=== PATIENT | female | born 1990 | race Caucasian/White ===

== ENCOUNTER 2017-03-29 22:14 | Emergency (ER) | payer OTHER ==
[~2017-03-29] VITALS: Ht 157.5 cm; Wt 117.9 kg
--- NOTE | 2017-03-29 22:35 | NUR ---
pt a/o x 4, breathing unlabored, c/o of headache x 1 days, bilateral temporal pain non-radiating 02/23. states "I didnt take any medication today, just wanted to come in and be seen." no visual disturbances,
[2017-03-29] MEDS ORDERED: KETOROLAC TROMETHAMINE INJ 60 MG/2 ML VIAL IM ONE ×2 (22:38→23:00)
[2017-03-29] MEDS ORDERED: ONDANSETRON 4 MG TAB.RAPDIS ONE (22:38)
[2017-03-29] MEDS ORDERED: ONDANSETRON 4 MG TAB.RAPDIS SL ONE (23:00)
[2017-03-29 23:09] VITALS: BP 132/66
== END 2017-03-29 23:11 | disposition home or self-care (01) ==
LOC: ER 22:18
DX: O26.899 Other specified pregnancy related conditions, unspecified trimester (principal); R51 Headache; Z3A.00 Weeks of gestation of pregnancy not specified
CPT/HCPCS: 84703; 96372; 99283; A4606; J1885; Q0162; Z7610

== ENCOUNTER 2017-05-24 17:27 | Emergency (ER) | payer OTHER ==
[~2017-05-24] VITALS: Ht 162.6 cm; Wt 112.0 kg
[2017-05-24 18:12] VITALS: BP 108/71
--- NOTE | 2017-05-24 18:12 | NUR ---
PT AMBULATORY TO ER BED 17. C/O BLURING OF VISION, DIZZINESS AND NAUSEA AND VOMITING FOR COUPLE OF DAYS. PT IS 3 MONTHS . GOWNED AND PLACED ON MONITOR. NAD NOTED. AWAITING MD ARVIZU.
--- NOTE | 2017-05-24 18:24 | NUR ---
SHANELLE ROD AT BEDSIDE FOR EVAL.
[2017-05-24] MEDS ORDERED: IV NS 0.9% 1,000 ML BAG IV ONE (18:30)
[2017-05-24] MEDS ORDERED: METOCLOPRAMIDE HCL 10 MG/2 ML VIAL IV ONE (18:30)
--- NOTE | 2017-05-24 18:30 | NUR ---
IV LINE STARTED BLOOD DRAWN AND SENT TO LAB.
[2017-05-24] MEDS ORDERED: METOCLOPRAMIDE HCL 10 MG/2 ML VIAL ONE (18:34)
[2017-05-24 18:35] LABS: BASOPHILS # (AUTO) 0.3 /CMM (0.0-0.2); BASOPHILS % (AUTO) 2.5 % (0.0-2.0); EOSINOPHILS # (AUTO) 0.1 /CMM (0.0-0.7); EOSINOPHILS % (AUTO) 0.5 % (0.0-6.0); HEMATOCRIT 39 % (33-45); HEMOGLOBIN 13.3 g/dL (11.5-14.8); LYMPHOCYTES # (AUTO) 2.2 /CMM (0.8-4.8); LYMPHOCYTES % (AUTO) 21.3 % (20.0-44.0); MEAN CORPUSCULAR HEMOGLOBIN 29 PG (26.0-33.0); MEAN CORPUSCULAR HGB CONC 34 g/dl (31.0-36.0); MEAN CORPUSCULAR VOLUME 87 fL (82-100); MONOCYTES # (AUTO) 0.4 /CMM (0.1-1.30); MONOCYTES % (AUTO) 4.1 % (2.0-12.0); NEUTROPHILS # (AUTO) 7.4 /CMM (1.8-8.9); NEUTROPHILS % (AUTO) 71.6 % (43.0-81.0); PLATELET COUNT (AUTO) 130 /CMM (150-450); RDW COEFFICIENT OF VARIATION 11.7 (11.5-15.0); RED BLOOD CELL COUNT(AUTO) 4.52 MIL/uL (4.0-5.2); WHITE BLOOD COUNT (AUTO) 10.4 K/uL (4.3-11.0)
[2017-05-24 18:44] LABS: CALCIUM, SERUM 8.7 mg/dL (8.5-10.1); CREATININE 0.7 mg/dL (0.6-1.3); POTASSIUM 3.9 mmol/L (3.5-5.1)
--- NOTE | 2017-05-24 18:50 | NUR ---
PT AGITATED, STATING SHE WANT TO GO HOME CAUSE SHE IS FEELING FINE. EMOTIONAL ASK FOR [facility] TO BE REMOVED. MARSII AT BEDSIDE. REFUSING TO STAY. AMA FORM SIGNED. [facility] D/C'D. DISCHARGE HOME.
== END 2017-05-24 19:04 | disposition left against medical advice (07) ==
LOC: ER 17:29
DX: R11.2 Nausea with vomiting, unspecified (principal); F17.210 Nicotine dependence, cigarettes, uncomplicated
CPT/HCPCS: 36415; 80048; 85025; 96374; 99284; 99406; A4606 ×2; J2765; J7030; Z7610

== ENCOUNTER 2018-11-14 21:28 | Emergency (ER) | payer OTHER ==
[~2018-11-14] VITALS: Ht 167.6 cm; Wt 122.5 kg
[2018-11-14 21:48] VITALS: BP 154/70
== END 2018-11-14 22:35 | disposition home or self-care (01) ==
LOC: ER 21:35
DX: R21 Rash and other nonspecific skin eruption (principal); M54.5 Low back pain; G89.29 Other chronic pain; Z98.890 Other specified postprocedural states